=== PATIENT | male | born 1975 | race Caucasian/White ===

== ENCOUNTER 2022-01-26 12:07 | Emergency (ER) | payer OTHER ==
[2022-01-26 13:08] LABS: HEMOGLOBIN 15.1 gm/dl (14.0-17.5); RED BLOOD COUNT 4.65 M/UL (4.20-5.50); WHITE BLOOD COUNT 7.6 K/UL (4.5-11.0)
[2022-01-26 13:35] LABS: BUN/CREATININE RATIO 13 (0-10)
[2022-01-26] MEDS ORDERED: ONDANSETRON ODT4 MG SL (17:24)
[2022-01-26] MEDS ORDERED: TORADOL 10 MG T10 MG PO (17:24)
== END 2022-01-26 17:37 | disposition home or self-care (01) ==
LOC: ER1 12:07
PROVIDERS: Emergency Medicine
DX: K80.20 Calculus of gallbladder without cholecystitis without obstruction (principal); I10 Essential (primary) hypertension; K21.9 Gastro-esophageal reflux disease without esophagitis; F17.200 Nicotine dependence, unspecified, uncomplicated; Z79.899 Other long term (current) drug therapy
CPT/HCPCS: 76705; 80053; 81001; 83690; 85025; 85610; 85730; 96374; 99284; J1885